=== PATIENT | male | born 1985 | race Caucasian/White ===

== ENCOUNTER 2017-03-30 03:42 | Emergency (ER) | payer OTHER ==
[~2017-03-30] VITALS: Ht 170.2 cm; Wt 72.7 kg
[~2017-03-30 03:42] MED LIST: ACET325T33 PO; IBUP-1542 PO
[2017-03-30 03:45] VITALS: Ht 170.2 cm; Wt 72.7 kg
[2017-03-30] MEDS ORDERED: ACETAMINOPHEN 325 MG TAB PO ONE (05:00)
--- NOTE | 2017-03-30 05:18 | RADRPT ---
PROCEDURE: XR Foot. CLINICAL INDICATION: Trauma TECHNIQUE: 3 views of the left foot were obtained. COMPARISON: None. FINDINGS: No fracture or dislocation is seen. No foreign body is seen. No marked soft tissue swelling. No s ignificant degenerative change. IMPRESSION: No definite acute fracture or dislocation. RPTAT: HLBE Marianne Pro Physician Date Time Electronically viewed and signed by Marianne Pro, Physician on 03/30/2017 05:18 LE/
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
[2017-03-30] MEDS ORDERED: IBUP800T25 PO (05:24)
[2017-03-30 05:46] VITALS: BP 101/58; PULSE 88; RESP 16; TEMP 98.2
== END 2017-03-30 05:45 | disposition home or self-care (01) ==
LOC: E/R 03:42
DX: S90.32XA Contusion of left foot, initial encounter (principal); V18.4XXA Pedal cycle driver injured in noncollision transport accident in traffic accident, initial encounter
CPT/HCPCS: 73630; Z7502; Z7610

== ENCOUNTER 2017-06-03 10:10 | Emergency (ER) | payer MEDICAID ==
[~2017-06-03] VITALS: Ht 154.9 cm; Wt 66.0 kg
[~2017-06-03 10:10] MED LIST changes: +IBUP800T25 PO
[2017-06-03 10:13] VITALS: Ht 154.9 cm; Wt 66.0 kg
[2017-06-03] MEDS ORDERED: DIPHTH/TET/ACEL PERTUSS (ADULT) 0.5 ML VIAL IM* ONE (11:00)
[2017-06-03] MEDS ORDERED: ACET500C5 PO (11:14)
[2017-06-03] MEDS ORDERED: NEOM28OI TP (11:14)
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
== END 2017-06-03 12:50 | disposition home or self-care (01) ==
LOC: FTE 10:10
DX: S30.810A Abrasion of lower back and pelvis, initial encounter (principal); X58.XXXA Exposure to other specified factors, initial encounter; Y92.89 Other specified places as the place of occurrence of the external cause; Z23 Encounter for immunization
CPT/HCPCS: 90471; 90715; Z7502

== ENCOUNTER 2018-11-10 09:01 | Emergency (ER) | payer OTHER ==
[~2018-11-10] VITALS: Ht 167.6 cm; Wt 64.4 kg
[~2018-11-10 09:01] MED LIST changes: +ACET500C5 PO; +CEPH250S33 PO; -IBUP800T25 PO; +IBUP800T48 PO; +NAPR-688 PO; +NEOM28OI2 TP
[2018-11-10 09:06] VITALS: Ht 167.6 cm; Wt 64.4 kg
[2018-11-10] MEDS ORDERED: ALPRAZOLAM 1 MG TAB PO ONE (10:00)
[2018-11-10] MEDS ORDERED: ALPR0.5T PO (10:11)
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
[2018-11-10 11:04] VITALS: BP 134/74; PULSE 74; RESP 17
== END 2018-11-10 11:06 | disposition home or self-care (01) ==
LOC: E/R 09:01
DX: F41.9 Anxiety disorder, unspecified (principal); Z87.891 Personal history of nicotine dependence
CPT/HCPCS: 99283

== ENCOUNTER 2019-02-03 00:19 | Emergency (ER) | payer OTHER ==
[~2019-02-03] VITALS: Wt 64.6 kg
[~2019-02-03 00:19] MED LIST changes: -ACET325T33 PO; -ACET500C5 PO; +ALPR0.5T PO; -CEPH250S33 PO; -IBUP-1542 PO; -IBUP800T48 PO; -NAPR-688 PO; -NEOM28OI2 TP
[2019-02-03] MEDS ORDERED: ACETAMINOPHEN 500 MG TAB PO STA (02:04)
[2019-02-03] MEDS ORDERED: DIPHTH/TET/ACEL PERTUSS (ADULT) 0.5 ML VIAL IM* ONE (02:30)
[2019-02-03] MEDS ORDERED: ACET500C5 PO (04:17)
[2019-02-03] MEDS ORDERED: AMOX1TAB10 PO (04:17)
[2019-02-03 04:31] VITALS: BP 124/88; PULSE 88; RESP 16
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
== END 2019-02-03 04:33 | disposition home or self-care (01) ==
LOC: FTE 00:19
DX: S02.81XA Fracture of other specified skull and facial bones, right side, initial encounter for closed fracture (principal); S69.91XA Unspecified injury of right wrist, hand and finger(s), initial encounter; Y04.2XXA Assault by strike against or bumped into by another person, initial encounter; Z23 Encounter for immunization; Z87.891 Personal history of nicotine dependence
CPT/HCPCS: 70450; 70486; 90471; 90715

== ENCOUNTER 2019-03-13 16:15 | Emergency (ER) | payer OTHER ==
[~2019-03-13] VITALS: Ht 160 cm; Wt 60.0 kg
[~2019-03-13 16:15] MED LIST changes: +ACET500C5 PO; +AMOX1TAB10 PO
[2019-03-13 16:18] VITALS: Ht 160 cm; Wt 60.0 kg
[2019-03-13] MEDS ORDERED: MAGNESIUM SULFATE 2 GM, MULTIVITAMINS 10 ML, THIAMINE 100 MG, FOLIC ACID 1 MG in SOD CH... IV STA (16:24)
[2019-03-13 19:30] VITALS: BP 110/67; PULSE 88; RESP 17
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
== END 2019-03-13 20:13 | disposition home or self-care (01) ==
LOC: E/R 16:15
DX: F10.120 Alcohol abuse with intoxication, uncomplicated (principal)
CPT/HCPCS: 80053; 80307; 81003; 85025; 93005; J3411; J3475; J7030; Z7610; 96374